=== PATIENT | female | born 1935 | race Caucasian/White ===

== ENCOUNTER 2018-05-05 21:22 | Inpatient (IN) | payer MEDICARE, OTHER ==
[~2018-05-05] VITALS: Ht 162.6 cm; Wt 57.2 kg
[2018-05-05] MEDS ORDERED: FOLI0.8T41 PO (22:03)
[2018-05-05] MEDS ORDERED: CITA40TA22 PO (22:03)
[2018-05-05] MEDS ORDERED: ZOLP5TAB8 PO (22:03)
[2018-05-05] MEDS ORDERED: CLON0.1T PO (22:03)
[2018-05-05] MEDS ORDERED: LEVA0.6320 IH (22:03)
[2018-05-05] MEDS ORDERED: LACT10SO PO (22:03)
[2018-05-05] MEDS ORDERED: TEMA30CA5 PO (22:03)
[2018-05-05] MEDS ORDERED: SODI104S NS (22:03)
[2018-05-05] MEDS ORDERED: AZIT500T PO (22:03)
[2018-05-05] MEDS ORDERED: PANT40VI IV (22:03)
[2018-05-05] MEDS ORDERED: DOCU100C36 PO (22:03)
[2018-05-05] MEDS ORDERED: CEFT1VIA15 IV (22:03)
[2018-05-05] MEDS ORDERED: FAMO20VI2 IV (22:03)
[2018-05-05] MEDS ORDERED: MAGN400O6 PO (22:03)
[2018-05-05] MEDS ORDERED: ATOR10TA PO (22:03)
[2018-05-05] MEDS ORDERED: VANC1FRO2 IV (22:03)
[2018-05-05] MEDS ORDERED: PIPE3.379 IV (22:03)
[2018-05-05] MEDS ORDERED: FLUO20CA36 PO (22:03)
[2018-05-05] MEDS ORDERED: BISA10SU61 RC (22:03)
[2018-05-05] MEDS ORDERED: ENOX40DI SQ (22:03)
[2018-05-05 22:15] LABS: BASOPHILS # (AUTO) 0.1 K/uL (0.0-8.0); BASOPHILS % (AUTO) 0.9 % (0.0-2.0); EOSINOPHILS % (AUTO) 0.5 % (0.0-7.0); HEMATOCRIT 30.9 % (31.2-41.9); HEMOGLOBIN 10.4 g/dL (10.9-14.3); LYMPHOCYTES # (AUTO) 0.6 K/uL (20.0-40.0); LYMPHOCYTES % (AUTO) 7.1 % (20.5-51.5); MEAN CORPUSCULAR HEMOGLOBIN 30.6 uug (24.7-32.8); MEAN CORPUSCULAR HGB CONC 34 g/dL (32.3-35.6); MEAN CORPUSCULAR VOLUME 90.9 fL (75.5-95.3); MONOCYTES # (AUTO) 1.3 K/uL (2.0-10.0); MONOCYTES % (AUTO) 17.4 % (0.0-11.0); NEUTROPHILS # (AUTO) 5.7 K/uL (1.8-8.9); NEUTROPHILS % (AUTO) 74.1 % (38.5-71.5); PLATELET COUNT (AUTO) 183 K/uL (179-408); WHITE BLOOD COUNT (AUTO) 7.8 K/uL (3.8-11.8)
[2018-05-05 22:18] LABS: NEUTROPHILS % (MANUAL) 0 % (42-75)
[2018-05-05 22:26] LABS: CARBON DIOXIDE 27 mmol/L (21-32); CHLORIDE 105 mmol/L (98-107); CREATININE 0.8 mg/dL (0.6-1.3); GLUCOSE 97 mg/dL (74-106); POTASSIUM 3.9 mmol/L (3.5-5.1); UREA NITROGEN, BLOOD 15 mg/dL (7-18)
[2018-05-05 22:31] LABS: ALANINE AMINOTRANSFERASE 113 U/L (14-59); ALKALINE PHOSPHATASE 88 U/L (50-136); ASPARTATE AMINOTRANSFERASE 59 U/L (15-37); BILIRUBIN,DIRECT 0.1 mg/dL (0.0-0.2); BILIRUBIN,TOTAL 0.5 mg/dL (0.2-1.0); TOTAL PROTEIN, SERUM 6.1 g/dL (6.4-8.2)
[2018-05-05 22:39] LABS: THYROID STIMULATING HORMONE 1.146 mIU/mL (0.358-3.740)
[2018-05-05 22:51] LABS: ETHANOL < 3 MG/DL (0-0)
--- NOTE | 2018-05-05 23:12 | NUR ---
Patient in bed, pending inpatient admission to MHU. No acute distress noted.
--- NOTE | 2018-05-06 00:03 | NUR ---
Ambulated to restroom with stable gait. Patient in bed, no acute distress noted. VSS
--- NOTE | 2018-05-06 00:29 | NUR ---
Called [facility] to page Neelam Schmidt NP.
--- NOTE | 2018-05-06 00:40 | NUR ---
Pt. admitted to Telemetry , under care of Shira Schmidt NP. Dx: PNA Belongs List completed
--- NOTE | 2018-05-06 00:42 | NUR ---
Report given to Sheila Mcintosh on Telemetry
[2018-05-06] MEDS ORDERED: LEVOFLOXACIN 750 MG TABLET PO STA (01:04)
--- NOTE | 2018-05-06 01:14 | NUR ---
Telemetry special forces officer notified of order for Fariha AVALOS
[2018-05-06 01:15] VITALS: BP 153/82
--- NOTE | 2018-05-06 01:20 | NUR ---
In from from 82 y/o male admitted to Tele Dx. Pneumonia. Awake alert & oriented, verbally responsive no SOB denies any pain at this time. Patient is on 5150-Hold for danger to self (Suicidal Ideation) 1:1 sitter in room for patient's safety. Admission assessment initiated. college archivist applied- sinus rhythm w/ PACs on monitor. Vital signs are WNL. Assisted to the bathroom, unsteady gait noted. Fall precaution observed.
--- NOTE | 2018-05-06 01:30 | NUR ---
Late dinner provided. Patient refused turkey sandwich but tolerated 2 Jellos. Levaquin 750 mg po given as ordered.
[2018-05-06] MEDS ORDERED: ONDANSETRON 4 MG/2 ML VIAL IV PRN (02:15)
[2018-05-06] MEDS ORDERED: IPRATROPIUM BROMIDE 0.5 MG/2.5 ML NEBU NEB PRN (02:15)
[2018-05-06] MEDS ORDERED: ALBUTEROL SULFATE 2.5 MG/ 0.5 ML NEBU NEB PRN (02:15)
[2018-05-06] MEDS: IV NS 1000 ML 1,000 ML IV PRN ×2 (02:31→21:26)
--- NOTE | 2018-05-06 04:00 | NUR ---
Asleep, no sign of distress. Sinus rhythm w/ PACs on Tele.
--- NOTE | 2018-05-06 06:00 | NUR ---
Urine sample sent to the lab.
[2018-05-06 06:33] LABS: *AMPHETAMINE, URINE NEGATIVE (NEGATIVE); *BARBITURATE, URINE NEGATIVE (NEGATIVE); *CANNABINOID, URINE NEGATIVE (NEGATIVE); *COCCAINE, URINE NEGATIVE (NEGATIVE); *OPIATE, URINE POSITIVE (NEGATIVE); *PHENCYCLIDINE SCREEN,URINE NEGATIVE (NEGATIVE)
[2018-05-06] MEDS: PANTOPRAZOLE SODIUM 40 MG TABLET.DR PO SCH (06:38)
[2018-05-06 06:46] LABS: *BILIRUBIN,URIN NEGATIVE (NEGATIVE); *CLARITY,URINE SLIGHTLY CLOUDY (CLEAR); *COLOR,URINE YELLOW (YELLOW); *KETONES,URINE NEGATIVE (NEGATIVE); *UROBILINOGEN,URINE 0.2 E.U./dl (NORMAL); LEUKOCYTE ESTERASE ,URINE NEGATIVE (NEGATIVE); NITRITE, URINE NEGATIVE (NEGATIVE); PH,URINE 7.5 (5.0-8.0); UGLUCOSE NEGATIVE (NEGATIVE)
[2018-05-06 06:47] LABS: *BLOOD, URINE TRACE (NEGATIVE)
--- NOTE | 2018-05-06 07:03 | NUR ---
Fairly rested. Safety maintained. No acute distress. Sinus rhythm w/ PACS on Tele.
[2018-05-06 07:12] LABS: BACTERIA,URINE FEW /HPF (NONE SEEN); RBC,URINE 0-3 /HPF (0-3); SQUAMOUS EPITHELIAL CELL,UR MODERATE /HPF (NONE SEEN)
[2018-05-06 07:13] LABS: BASOPHILS % (AUTO) 0.4 % (0.0-2.0); EOSINOPHILS # (AUTO) 0.1 K/uL (0.0-0.7); EOSINOPHILS % (AUTO) 1.5 % (0.0-7.0); HEMATOCRIT 27.6 % (31.2-41.9); HEMOGLOBIN 9.3 g/dL (10.9-14.3); LYMPHOCYTES # (AUTO) 0.7 K/uL (20.0-40.0); LYMPHOCYTES % (AUTO) 8.5 % (20.5-51.5); MEAN CORPUSCULAR HEMOGLOBIN 30.7 uug (24.7-32.8); MEAN CORPUSCULAR HGB CONC 34 g/dL (32.3-35.6); MEAN CORPUSCULAR VOLUME 90.7 fL (75.5-95.3); MONOCYTES # (AUTO) 1.4 K/uL (2.0-10.0); NEUTROPHILS # (AUTO) 5.5 K/uL (1.8-8.9); NEUTROPHILS % (AUTO) 71.6 % (38.5-71.5); PLATELET COUNT (AUTO) 177 K/uL (179-408); RED BLOOD CELL COUNT(AUTO) 3.05 MIL/uL (3.63-4.92); WHITE BLOOD COUNT (AUTO) 7.7 K/uL (3.8-11.8)
[2018-05-06 07:30] LABS: ALANINE AMINOTRANSFERASE 85 U/L (14-59); ALKALINE PHOSPHATASE 67 U/L (50-136); ASPARTATE AMINOTRANSFERASE 35 U/L (15-37); BILIRUBIN,TOTAL 0.5 mg/dL (0.2-1.0); CARBON DIOXIDE 25 mmol/L (21-32); CHLORIDE 106 mmol/L (98-107); CHOLESTEROL 106 mg/dL (<200); CREATININE 0.7 mg/dL (0.6-1.3); GLUCOSE 103 mg/dL (74-106); HDL CHOLESTEROL 47 mg/dL (40-60); MAGNESIUM 1.8 mg/dL (1.8-2.4); PHOSPHOROUS 1.6 mg/dL (2.5-4.9); POTASSIUM 3.5 mmol/L (3.5-5.1); TOTAL PROTEIN, SERUM 5.3 g/dL (6.4-8.2); TRIGLYCERIDES 51 MG/DL (30-150); UREA NITROGEN, BLOOD 14 mg/dL (7-18)
[2018-05-06 07:41] LABS: EOSINOPHILS % (MANUAL) 2 % (0-8); LYMPHOCYTES % (MANUAL) 8 % (20-40); MONOCYTES % (MANUAL) 16 % (2-10); NEUTROPHILS % (MANUAL) 74 % (42-75)
--- NOTE | 2018-05-06 08:00 | NUR ---
AWAKE ALERT AND AWARE BUT FORGETFUL DENIES SUICIDAL THOUGHTS AT THIS TIME REMAIN ON ONE ON ONE SITTER FOR SAFETY DENIES PAIN OR DISCOMFORTS AT THIS TIME REMAIN ON IVF ORDERED WITH NO S/S OF INFILTERATION ON SITE MADE COMFORTABLE AND WILL CONTINUE TO PROVIDE AFE AND THERAPEUTIC ENVIRONMENT AT ALL TIMES.
[2018-05-06] MEDS: FOLIC ACID/VITAMIN B COMP W-C TABLET PO SCH (08:43)
[2018-05-06] MEDS: DOCUSATE SODIUM 100 MG CAPSULE PO SCH (08:44)
[2018-05-06] MEDS ORDERED: LACTULOSE 20 G/30 ML LIQUID UDC PO SCH ×2 (09:00)
--- NOTE | 2018-05-06 10:33 | NUR ---
DR GANN HERE TO SEE AND EXAMINE PATIENT WITH NEW ORDERS AND NOTED
[2018-05-06 10:44] VITALS: BP 149/69
[2018-05-06] MEDS: VENLAFAXINE XR 37.5 MG CAP.SR.24H PO SCH (11:23)
[2018-05-06] MEDS: NEUTRA PHOS PACKET PO SCH ×3 (12:43→20:57)
--- NOTE | 2018-05-06 13:28 | NUR ---
PHOS LEVEL IS 1.6 PASCHUAL LAPELER AWARE WITH NEW ORDERS AND NOTED.
--- NOTE | 2018-05-06 14:24 | NUR ---
PATIENTS IS HERE AT THE BEDSIDE VISITING AND PATIENT IS GETTING AGITATED AND RESTLESS SHE HAS NO ANTI ANXIETY ORDERED SO I CALLED DR GANN SPOKE WITH HIM WITH NEW ORDERS AND NOTED.
[2018-05-06] MEDS: LORAZEPAM 1 MG TABLET PO PRN ×2 (14:34→20:57)
[2018-05-06] MEDS: FLUTICASONE PROP NASAL SPRAY 16 GM BOTTLE NS SCH (15:00)
--- NOTE | 2018-05-06 15:28 | NUR ---
APPARENTLY WHILE THE PATIENTS WAS HERE HE BROUGHT THE NASAL SPRAY FROM HOME AND STATED THAT HE GAVE HER A DOSE ALREADY AND HE WAS INSTRUCTED TO NOT GIVE HER ANY MEDICATIONS ANYMORE ONLY THE NURSES CAN GIVE ORDERED MEDS HE TOOK THE FLONASE HOME.
[2018-05-06] MEDS: ACETAMINOPHEN 325 MG TABLET PO PRN (16:09)
[2018-05-06] MEDS: BENZOCAINE/MENTH/CETYLPYRD LOZENGE MM PRN ×2 (16:09→20:59)
[2018-05-06 16:12] VITALS: BP 166/75
--- NOTE | 2018-05-06 16:47 | NUR ---
BLOOD PRESSURE AT THIS TIME IS 166/75 PATIENT WAS MEDICATED WITH ATIVEN ABOUT 1435 TO ATTEMPT TO CALM HER DOWN ZOYA ASSISTED LIVING CARE MANAGER CALLED AND NOTIFIED STATED OKAY WILL CHECK PATIENT.
--- NOTE | 2018-05-06 18:59 | NUR ---
AWAKE PER NURSE WHO IS HER SITTER PATIENT HAD ABOUT 4 BOWEL MOVEMENTS FORMED WILL CONTINUE TO OBSERVE.
[2018-05-06 20:00] VITALS: BP 175/80
[2018-05-06] MEDS: HYDROCODONE/APAP 5-325MG TABLET PO PRN (20:59)
[2018-05-06] MEDS ORDERED: ATORVASTATIN 10 MG TABLET PO SCH (21:00)
--- NOTE | 2018-05-06 21:00 | NUR ---
Patient awake quiet in room, no sign of distress noted. BP elevated 175/80. Sinus rhythm w/ PACs on Tele. Caregiver in room for patient's safety.
[2018-05-06] MEDS ORDERED: hydrALAZINE HCL 20 MG/1 ML VIAL IV PRN (23:00)
--- NOTE | 2018-05-06 23:00 | NUR ---
Hydralazine 10 mg IVP adm for elevated BP. Will continue to monitor.
[2018-05-07] VITALS: BP 124/64
--- NOTE | 2018-05-07 00:04 | NUR ---
Left AC IV line infiltrated. Inserted new line on her left forearm w/ A20-
[2018-05-07] MEDS ORDERED: LEVOFLOXACIN 750MG/D5W 750 MG in PREMIXED 1 EACH IV SCH (01:00)
[2018-05-07 04:00] VITALS: BP 151/61
--- NOTE | 2018-05-07 06:00 | NUR ---
No acute distress. Slept 3 hours throughout the night. 1:1 sitter in room. Kept comfortable, medicated for pain PRN. Lucero signs WNL.
[2018-05-07] MEDS: ACETAMINOPHEN 325 MG TABLET PO PRN ×2 (06:29→13:49)
[2018-05-07] MEDS: PANTOPRAZOLE SODIUM 40 MG TABLET.DR PO SCH (06:31)
[2018-05-07] MEDS: FLUTICASONE PROP NASAL SPRAY 16 GM BOTTLE NS SCH (06:32)
[2018-05-07 06:53] LABS: BASOPHILS % (AUTO) 0.5 % (0.0-2.0); EOSINOPHILS # (AUTO) 0.1 K/uL (0.0-0.7); EOSINOPHILS % (AUTO) 1.2 % (0.0-7.0); HEMATOCRIT 29.2 % (31.2-41.9); HEMOGLOBIN 9.9 g/dL (10.9-14.3); LYMPHOCYTES # (AUTO) 0.5 K/uL (20.0-40.0); LYMPHOCYTES % (AUTO) 5.4 % (20.5-51.5); MEAN CORPUSCULAR HEMOGLOBIN 30.9 uug (24.7-32.8); MEAN CORPUSCULAR HGB CONC 34 g/dL (32.3-35.6); MEAN CORPUSCULAR VOLUME 90.8 fL (75.5-95.3); MONOCYTES # (AUTO) 1.5 K/uL (2.0-10.0); MONOCYTES % (AUTO) 14.9 % (0.0-11.0); NEUTROPHILS # (AUTO) 7.7 K/uL (1.8-8.9); PLATELET COUNT (AUTO) 190 K/uL (179-408); RED BLOOD CELL COUNT(AUTO) 3.21 MIL/uL (3.63-4.92); WHITE BLOOD COUNT (AUTO) 9.9 K/uL (3.8-11.8)
[2018-05-07 07:13] LABS: ALANINE AMINOTRANSFERASE 77 U/L (14-59); ALKALINE PHOSPHATASE 69 U/L (50-136); ASPARTATE AMINOTRANSFERASE 27 U/L (15-37); BILIRUBIN,TOTAL 0.4 mg/dL (0.2-1.0); CARBON DIOXIDE 24 mmol/L (21-32); CHLORIDE 105 mmol/L (98-107); CREATININE 0.6 mg/dL (0.6-1.3); GLUCOSE 118 mg/dL (74-106); MAGNESIUM 1.5 mg/dL (1.8-2.4); PHOSPHOROUS 2.4 mg/dL (2.5-4.9); POTASSIUM 3.1 mmol/L (3.5-5.1); TOTAL PROTEIN, SERUM 5.6 g/dL (6.4-8.2); UREA NITROGEN, BLOOD 12 mg/dL (7-18)
--- NOTE | 2018-05-07 07:30 | NUR ---
PATIENT IS AWAKE AND ALERT SLEPT POORLY PER REPORT REMAINS ON ONE ON ONE SITTER FOR SAFETY NO VERBALISED INTENT TO HARM SELF AT THIS TIME.WILL CONTINUE TO PROVIDE SAFE AND THERAPEUTIC ENVIRONMENT AT ALL TIMES.WILL CONTINUE TO OBSERVE
[2018-05-07 07:45] VITALS: BP 138/58
[2018-05-07] MEDS ORDERED: NEUTRA PHOS PACKET PO ONE (08:15)
[2018-05-07] MEDS: FOLIC ACID/VITAMIN B COMP W-C TABLET PO SCH (08:34)
[2018-05-07] MEDS: HYDROCODONE/APAP 5-325MG TABLET PO PRN (08:35)
[2018-05-07] MEDS: VENLAFAXINE XR 37.5 MG CAP.SR.24H PO SCH (08:37)
[2018-05-07] MEDS: MAGNESIUM SULFATE/D5W 100 ML IV SCH ×2 (08:37→09:55)
[2018-05-07] MEDS: DOCUSATE SODIUM 100 MG CAPSULE PO SCH (08:43)
[2018-05-07] MEDS ORDERED: ASPIRIN/ACETAMINOPHEN/CAFFEINE TABLET PO PRN (09:00)
[2018-05-07] MEDS ORDERED: ZOLPIDEM 5 MG TABLET PO PRN ×2 (09:15→10:00)
[2018-05-07] MEDS ORDERED: HYDROXYZINE PAMOATE 25 MG CAPSULE PO PRN (09:15)
--- NOTE | 2018-05-07 09:30 | NUR ---
POTASSIUM LEVEL IS 3.1,MAG IS 1.5 PHOS IS 2.4 SEEN BY TYLOR MACHINIST SET UP WITH NEW ORDERS AND NOTED.
[2018-05-07] MEDS: POTASSIUM CHLORIDE 50 ML IV SCH ×4 (11:08→15:14)
[2018-05-07 11:57] VITALS: BP 115/55
[2018-05-07] MEDS: LORAZEPAM 1 MG TABLET PO PRN (13:49)
--- NOTE | 2018-05-07 15:30 | NUR ---
POTASSIUM INFUSSION COMPLETED ORDERED AND PATIENT TOLERATED WELL
--- NOTE | 2018-05-07 15:32 | NUR ---
Per Nguyễn Sanabria ASSOCIATE PROFESSOR OF MUSICOLOGY: orders to discharge the patient to [facility]. Noted and carried out. Charge nurse Miranda jones
--- NOTE | 2018-05-07 15:50 | NUR ---
PATIENTS VICKY IS HERE TO VISIT AND AWARE THAT PATIENT WILL BE MOVED TO THE MENTAL HEALTH UNIT TODAY FOR CONTINUING CARE AND EXPRESSED UNDERSTANDING.
--- NOTE | 2018-05-07 15:55 | NUR ---
CALLED [facility]ENTAL HEALTH AND REPORT GIVEN TO EDDIE FOR CONTINUING CARE PATIENT WILL BE TRANSFERED TO MHU ROOM 141 FOR CONTINUING CARE.
[2018-05-07 15:59] VITALS: BP 141/68
--- NOTE | 2018-05-07 16:35 | NUR ---
PATIENT DISCHARGED NOTED SOME RASHES ON HER BACK LOCALIZED DENIES ITCHING FUNCTIONAL SUPPORT ANALYST TYLOR AWARE WITH NO NEW ORDERS PATIENT TAKEN DOWN TO THE MHU ROOM 141 BY W/CHAIR WITH ALL OF HER PERSONAL BELONGINGS.
== END 2018-05-07 16:35 | DRG 194 ==
LOC: ER 21:22 → TELE3 05-06 00:47 → EDBD 05-06 00:47 → MEDSURG3 05-07 11:59
PROVIDERS: ADMIT Nurse Practitioner Acute Care; ATTEND Hospitalist
DX: J18.9 Pneumonia, unspecified organism (principal); E44.0 Moderate protein-calorie malnutrition; J98.11 Atelectasis; J90 Pleural effusion, not elsewhere classified; T39.1X2D Poisoning by 4-Aminophenol derivatives, intentional self-harm, subsequent encounter; K71.8 Toxic liver disease with other disorders of liver; Z68.21 Body mass index [BMI] 21.0-21.9, adult; M81.0 Age-related osteoporosis without current pathological fracture; E83.42 Hypomagnesemia; E87.6 Hypokalemia; G89.4 Chronic pain syndrome; E89.2 Postprocedural hypoparathyroidism; Z90.722 Acquired absence of ovaries, bilateral; Z80.41 Family history of malignant neoplasm of ovary; K58.9 Irritable bowel syndrome, unspecified; H91.93 Unspecified hearing loss, bilateral; Z86.011 Personal history of benign neoplasm of the brain; F32.9 Major depressive disorder, single episode, unspecified; D64.9 Anemia, unspecified; E78.5 Hyperlipidemia, unspecified; Z79.899 Other long term (current) drug therapy; M54.5 Low back pain; G44.209 Tension-type headache, unspecified, not intractable; E83.39 Other disorders of phosphorus metabolism; Y95 Nosocomial condition
CPT/HCPCS: 36415; 71045; 80307; 83735; 84100; 84443; 85025; 85730; 87040; 93005; A4663; G0378; G0480; G0480-TC; J0360; J1956; J3475; J3480; J3535; J7030

== ENCOUNTER 2018-05-07 17:53 | Inpatient (IN) | payer MEDICARE ==
[~2018-05-07] VITALS: Ht 152.4 cm; Wt 51.7 kg
[2018-05-07 17:00] VITALS: BP 159/76
[~2018-05-07 17:53] MED LIST: ATOR10TA PO; AZIT500T PO; BISA10SU61 RC; CEFT1VIA15 IV; CITA40TA22 PO; CLON0.1T PO; DOCU100C36 PO; ENOX40DI SQ; FAMO20VI2 IV; FLUO20CA36 PO; FOLI0.8T41 PO; LACT10SO PO; LEVA0.6320 IH; MAGN400O6 PO; PANT40VI IV; PIPE3.379 IV; SODI104S NS; TEMA30CA5 PO; VANC1FRO2 IV; ZOLP5TAB8 PO
[2018-05-07] MEDS ORDERED: MAGNESIUM HYDROXIDE 30 ML LIQUID UDC PO PRN (20:00)
[2018-05-07] MEDS ORDERED: ZOLPIDEM 5 MG TABLET PO PRN (20:00)
[2018-05-07] MEDS ORDERED: MAG HYDROX/AL HYDROX/SIMETH 30 ML LIQUID UDC PO PRN (20:00)
[2018-05-07] MEDS ORDERED: LORAZEPAM 0.5 MG TABLET PO PRN (20:00)
[2018-05-07] MEDS: ACETAMINOPHEN 325 MG TABLET PO PRN (21:12)
[2018-05-07 21:17] VITALS: BP 136/70
[2018-05-07] MEDS ORDERED: BISACODYL 10 MG SUPP.RECT RC PRN (23:15)
[2018-05-08 07:30] VITALS: BP 165/72
[2018-05-08] MEDS: FOLIC ACID/VITAMIN B COMP W-C TABLET PO SCH (09:15)
[2018-05-08] MEDS: DOCUSATE SODIUM 100 MG CAPSULE PO SCH (09:15)
[2018-05-08] MEDS: ENOXAPARIN SODIUM 40 MG/0.4 ML DISP.SYRIN SQ SCH (09:17)
[2018-05-08] MEDS: LEVOFLOXACIN 750 MG TABLET PO SCH (09:33)
[2018-05-08] MEDS ORDERED: TEMAZEPAM 15 MG CAPSULE PO PRN (13:15)
[2018-05-08] MEDS ORDERED: LORAZEPAM 0.5 MG TABLET PO PRN (13:15)
[2018-05-08] MEDS ORDERED: VENLAFAXINE XR 37.5 MG CAP.SR.24H PO SCH (13:15)
[2018-05-08] MEDS ORDERED: HYDROXYZINE PAMOATE 25 MG CAPSULE PO PRN (13:15)
[2018-05-08 16:00] VITALS: BP 155/71
[2018-05-08 17:22] LABS: BILIRUBIN,DIRECT 0.2 mg/dL (0.0-0.2); BILIRUBIN,TOTAL 0.4 mg/dL (0.2-1.0)
[2018-05-08] MEDS: ATORVASTATIN 10 MG TABLET PO SCH (20:14)
[2018-05-08] MEDS: CLONIDINE HCL 0.1 MG TABLET PO PRN (20:14)
[2018-05-08 20:29] VITALS: BP 167/70
[2018-05-08] MEDS ORDERED: ACYCLOVIR 200 MG CAPSULE PO SCH (21:00)
[2018-05-08 21:54] VITALS: BP 138/79
[2018-05-09 07:07] LABS: BASOPHILS # (AUTO) 0.1 K/uL (0.0-8.0); BASOPHILS % (AUTO) 0.8 % (0.0-2.0); EOSINOPHILS # (AUTO) 0.2 K/uL (0.0-0.7); EOSINOPHILS % (AUTO) 2.4 % (0.0-7.0); HEMOGLOBIN 9.3 g/dL (10.9-14.3); LYMPHOCYTES # (AUTO) 0.7 K/uL (20.0-40.0); LYMPHOCYTES % (AUTO) 10.4 % (20.5-51.5); MEAN CORPUSCULAR HEMOGLOBIN 31.3 uug (24.7-32.8); MEAN CORPUSCULAR HGB CONC 34 g/dL (32.3-35.6); MEAN CORPUSCULAR VOLUME 90.8 fL (75.5-95.3); MONOCYTES # (AUTO) 0.8 K/uL (2.0-10.0); MONOCYTES % (AUTO) 12.7 % (0.0-11.0); NEUTROPHILS # (AUTO) 4.8 K/uL (1.8-8.9); NEUTROPHILS % (AUTO) 73.7 % (38.5-71.5); PLATELET COUNT (AUTO) 273 K/uL (179-408); RED BLOOD CELL COUNT(AUTO) 2.98 MIL/uL (3.63-4.92); WHITE BLOOD COUNT (AUTO) 6.5 K/uL (3.8-11.8)
[2018-05-09 07:18] LABS: CARBON DIOXIDE 24 mmol/L (21-32); CHLORIDE 105 mmol/L (98-107); CREATININE 0.7 mg/dL (0.6-1.3); GLUCOSE 97 mg/dL (74-106); MAGNESIUM 1.8 mg/dL (1.8-2.4); PHOSPHOROUS 2.5 mg/dL (2.5-4.9); POTASSIUM 3.4 mmol/L (3.5-5.1); UREA NITROGEN, BLOOD 16 mg/dL (7-18)
[2018-05-09 07:30] VITALS: BP 111/63
[2018-05-09] MEDS: DOCUSATE SODIUM 100 MG CAPSULE PO SCH (08:11)
[2018-05-09] MEDS: ENOXAPARIN SODIUM 40 MG/0.4 ML DISP.SYRIN SQ SCH (08:12)
[2018-05-09] MEDS: FOLIC ACID/VITAMIN B COMP W-C TABLET PO SCH (08:12)
[2018-05-09] MEDS: ACYCLOVIR 200 MG CAPSULE PO SCH ×3 (09:07→16:35)
[2018-05-09] MEDS: VENLAFAXINE XR 37.5 MG CAP.SR.24H PO SCH (09:10)
[2018-05-09] MEDS: ASPIRIN/ACETAMINOPHEN/CAFFEINE TABLET PO PRN (09:12)
[2018-05-09 16:00] VITALS: BP 143/50
[2018-05-09] MEDS ORDERED: POTASSIUM CHLORIDE 20 MEQ TAB.PRT.SR PO ONE (17:30)
[2018-05-09] MEDS: ATORVASTATIN 10 MG TABLET PO SCH (20:02)
[2018-05-09] MEDS: CLONIDINE HCL 0.1 MG TABLET PO PRN (20:45)
[2018-05-09 20:58] VITALS: BP 176/77
[2018-05-09] MEDS: TEMAZEPAM 15 MG CAPSULE PO PRN (22:25)
[2018-05-09 22:30] VITALS: BP 151/66
[2018-05-10 07:30] VITALS: BP 164/77
[2018-05-10] MEDS: VENLAFAXINE XR 37.5 MG CAP.SR.24H PO SCH (09:47)
[2018-05-10] MEDS: DOCUSATE SODIUM 100 MG CAPSULE PO SCH (09:48)
[2018-05-10] MEDS: ACYCLOVIR 200 MG CAPSULE PO SCH ×3 (09:48→17:04)
[2018-05-10] MEDS: LEVOFLOXACIN 750 MG TABLET PO SCH (09:48)
[2018-05-10] MEDS: FOLIC ACID/VITAMIN B COMP W-C TABLET PO SCH (09:49)
[2018-05-10] MEDS: ENOXAPARIN SODIUM 40 MG/0.4 ML DISP.SYRIN SQ SCH (10:33)
[2018-05-10 20:46] VITALS: BP 146/72
[2018-05-10] MEDS: ATORVASTATIN 10 MG TABLET PO SCH (20:59)
[2018-05-10] MEDS: TEMAZEPAM 15 MG CAPSULE PO PRN (22:20)
[2018-05-11 07:30] VITALS: BP 150/75
[2018-05-11] MEDS: DOCUSATE SODIUM 100 MG CAPSULE PO SCH (08:14)
[2018-05-11] MEDS: FOLIC ACID/VITAMIN B COMP W-C TABLET PO SCH (08:14)
[2018-05-11] MEDS: ACYCLOVIR 200 MG CAPSULE PO SCH ×3 (08:15→17:02)
[2018-05-11] MEDS: VENLAFAXINE XR 37.5 MG CAP.SR.24H PO SCH (08:15)
[2018-05-11] MEDS: ENOXAPARIN SODIUM 40 MG/0.4 ML DISP.SYRIN SQ SCH (08:17)
[2018-05-11 16:00] VITALS: BP 142/66
[2018-05-11 20:00] VITALS: BP 157/72
[2018-05-11] MEDS: ATORVASTATIN 10 MG TABLET PO SCH (20:12)
[2018-05-11] MEDS: TEMAZEPAM 15 MG CAPSULE PO PRN (22:46)
[2018-05-12 07:30] VITALS: BP 162/75
[2018-05-12] MEDS: LEVOFLOXACIN 750 MG TABLET PO SCH (08:29)
[2018-05-12] MEDS: VENLAFAXINE XR 37.5 MG CAP.SR.24H PO SCH (08:29)
[2018-05-12] MEDS: DOCUSATE SODIUM 100 MG CAPSULE PO SCH (08:29)
[2018-05-12] MEDS: FOLIC ACID/VITAMIN B COMP W-C TABLET PO SCH (08:29)
[2018-05-12] MEDS: ACYCLOVIR 200 MG CAPSULE PO SCH ×3 (08:29→17:43)
[2018-05-12 15:33] VITALS: BP 161/77
[2018-05-12 20:09] VITALS: BP 162/77
[2018-05-12] MEDS: ATORVASTATIN 10 MG TABLET PO SCH (20:57)
[2018-05-12] MEDS: CLONIDINE HCL 0.1 MG TABLET PO PRN (20:57)
[2018-05-12] MEDS: TEMAZEPAM 15 MG CAPSULE PO PRN (21:30)
[2018-05-13] MEDS: ACETAMINOPHEN 325 MG TABLET PO PRN (04:59)
[2018-05-13 07:30] VITALS: BP 104/65
[2018-05-13 07:38] LABS: BASOPHILS # (AUTO) 0.1 K/uL (0.0-8.0); BASOPHILS % (AUTO) 1.3 % (0.0-2.0); EOSINOPHILS # (AUTO) 0.2 K/uL (0.0-0.7); EOSINOPHILS % (AUTO) 2.2 % (0.0-7.0); HEMATOCRIT 28.4 % (31.2-41.9); HEMOGLOBIN 9.8 g/dL (10.9-14.3); LYMPHOCYTES # (AUTO) 0.8 K/uL (20.0-40.0); LYMPHOCYTES % (AUTO) 11.9 % (20.5-51.5); MEAN CORPUSCULAR HEMOGLOBIN 31.4 uug (24.7-32.8); MEAN CORPUSCULAR HGB CONC 34 g/dL (32.3-35.6); MEAN CORPUSCULAR VOLUME 91.2 fL (75.5-95.3); MONOCYTES # (AUTO) 0.9 K/uL (2.0-10.0); MONOCYTES % (AUTO) 12.4 % (0.0-11.0); NEUTROPHILS # (AUTO) 5.1 K/uL (1.8-8.9); NEUTROPHILS % (AUTO) 72.2 % (38.5-71.5); PLATELET COUNT (AUTO) 397 K/uL (179-408); RED BLOOD CELL COUNT(AUTO) 3.11 MIL/uL (3.63-4.92)
[2018-05-13 07:53] LABS: ALANINE AMINOTRANSFERASE 45 U/L (14-59); ALKALINE PHOSPHATASE 79 U/L (50-136); ASPARTATE AMINOTRANSFERASE 18 U/L (15-37); BILIRUBIN,TOTAL 0.3 mg/dL (0.2-1.0); CARBON DIOXIDE 29 mmol/L (21-32); CHLORIDE 104 mmol/L (98-107); CREATININE 0.8 mg/dL (0.6-1.3); GLUCOSE 91 mg/dL (74-106); MAGNESIUM 1.7 mg/dL (1.8-2.4); PHOSPHOROUS 3.3 mg/dL (2.5-4.9); POTASSIUM 3.7 mmol/L (3.5-5.1); UREA NITROGEN, BLOOD 17 mg/dL (7-18)
[2018-05-13] MEDS: VENLAFAXINE XR 37.5 MG CAP.SR.24H PO SCH (08:15)
[2018-05-13] MEDS: FOLIC ACID/VITAMIN B COMP W-C TABLET PO SCH (08:15)
[2018-05-13] MEDS: DOCUSATE SODIUM 100 MG CAPSULE PO SCH (08:15)
[2018-05-13] MEDS ORDERED: MAGNESIUM OXIDE 400 MG TABLET PO ONE (13:00)
[2018-05-13 15:16] VITALS: BP 144/72
[2018-05-13 20:00] VITALS: BP 153/80
[2018-05-13] MEDS: TEMAZEPAM 15 MG CAPSULE PO PRN (21:23)
[2018-05-13] MEDS: ATORVASTATIN 10 MG TABLET PO SCH (21:23)
[2018-05-14] MEDS: ASPIRIN/ACETAMINOPHEN/CAFFEINE TABLET PO PRN (06:30)
[2018-05-14 07:30] VITALS: BP 156/76
[2018-05-14] MEDS: DOCUSATE SODIUM 100 MG CAPSULE PO SCH (08:31)
[2018-05-14] MEDS: FOLIC ACID/VITAMIN B COMP W-C TABLET PO SCH (08:32)
[2018-05-14] MEDS: VENLAFAXINE XR 37.5 MG CAP.SR.24H PO SCH (08:32)
== END 2018-05-14 13:00 | disposition home health service (06) | DRG 885 ==
LOC: GPS 17:53
PROVIDERS: ADMIT Psychiatry & Neurology Psychiatry; ATTEND Hospitalist
DX: F33.2 Major depressive disorder, recurrent severe without psychotic features (principal); J18.9 Pneumonia, unspecified organism; E44.0 Moderate protein-calorie malnutrition; R74.0 Nonspecific elevation of levels of transaminase and lactic acid dehydrogenase [LDH]; T39.1X2D Poisoning by 4-Aminophenol derivatives, intentional self-harm, subsequent encounter; T40.2X2D Poisoning by other opioids, intentional self-harm, subsequent encounter; K21.9 Gastro-esophageal reflux disease without esophagitis; G43.909 Migraine, unspecified, not intractable, without status migrainosus; K58.9 Irritable bowel syndrome, unspecified; Z68.22 Body mass index [BMI] 22.0-22.9, adult; A60.00 Herpesviral infection of urogenital system, unspecified; Z80.41 Family history of malignant neoplasm of ovary; Z90.722 Acquired absence of ovaries, bilateral; E89.2 Postprocedural hypoparathyroidism; G44.209 Tension-type headache, unspecified, not intractable; E83.42 Hypomagnesemia; E87.6 Hypokalemia; E83.39 Other disorders of phosphorus metabolism; E78.5 Hyperlipidemia, unspecified; Z79.899 Other long term (current) drug therapy; F41.9 Anxiety disorder, unspecified; G89.4 Chronic pain syndrome; I10 Essential (primary) hypertension; M54.5 Low back pain; Y95 Nosocomial condition; M81.0 Age-related osteoporosis without current pathological fracture; M19.90 Unspecified osteoarthritis, unspecified site; R21 Rash and other nonspecific skin eruption
CPT/HCPCS: 36415; 71045; 76700; 83735; 84100; 85025; 97110; 97112; 97116; 97165; 97530; A9150; J1650